=== PATIENT | female | born 1980 | race African-American/Black ===

== ENCOUNTER 2018-11-18 13:00 | Emergency (ER) | payer OTHER, SELFPAY ==
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
== END 2018-11-18 15:03 | disposition home or self-care (01) ==
LOC: NAV ERS 13:00
DX: S33.5XXA Sprain of ligaments of lumbar spine, initial encounter (principal); S05.11XA Contusion of eyeball and orbital tissues, right eye, initial encounter; V89.2XXA Person injured in unspecified motor-vehicle accident, traffic, initial encounter
CPT/HCPCS: 72100

== ENCOUNTER 2019-01-25 02:29 | Emergency (ER) | payer OTHER, SELFPAY ==
[2019-01-25] MEDS ORDERED: Benzonatate 100 MG CAP ONE (03:12)
[2019-01-25] MEDS ORDERED: predniSONE 20 MG TAB ONE (03:12)
== END 2019-01-25 03:20 | disposition home or self-care (01) ==
LOC: NAV ERS 02:29
DX: J06.9 Acute upper respiratory infection, unspecified (principal); J20.9 Acute bronchitis, unspecified
CPT/HCPCS: 87804; 99283

== ENCOUNTER 2020-11-17 19:06 | Emergency (ER) | payer SELFPAY ==
[2020-11-17 19:28] LABS: Bilirubin Negative (Negative); Blood, Urine Trace (Negative); Clarity Clear (Clear); Glucose, Urine (Dipstick) Negative (Negative); Ketone, Urine Negative (Negative); Leukocyte Negative (Negative); Nitrite Negative (Negative); Protein, Urine (Dipstick) Negative (Neg-Trace); Specific Gravity, Urine Greater/Equal 1.030 (1.005-1.030); pH, Urine 6.5 (5.0-9.0)
[2020-11-17 19:29] LABS: Bacteria/HPF None Seen HPF (None Seen); Calcium Oxalate Crystals 1+ HPF (None Seen); Squamous Epithelial 0-3 HPF (0-3); WBC/HPF None Seen HPF (0-3)
== END 2020-11-17 19:50 | disposition home or self-care (01) ==
LOC: NAV ERS 19:06
DX: R30.0 Dysuria (principal)
CPT/HCPCS: 81003; 81015; 99283

== ENCOUNTER 2021-01-02 11:13 | Emergency (ER) | payer SELFPAY | END 2021-01-02 12:18 | disposition home or self-care (01) | LOC: NAV ERS 11:13 | DX: N92.6 Irregular menstruation, unspecified (principal) | CPT/HCPCS: 99283 ==

== ENCOUNTER 2021-01-23 11:05 | Emergency (ER) | payer OTHER, SELFPAY ==
[2021-01-23 12:29] LABS: #Basophils 0.1 thou/uL (0.0-0.2); #Eosinphils 0.2 thou/uL (0.0-0.7); #Lymphocytes 1.3 thou/uL (1.20-3.40); #Monocytes 0.4 thou/uL (0.11-0.59); #Neutrophils 2.2 thou/uL (1.40-6.50); %Basophils 1.9 % (0.0-1.0); %Eosinophils 4.6 % (0.0-10.0); %Lymphocytes 31.8 % (21.0-51.0); %Neutrophils 51.7 % (42.0-75.0); Hemoglobin 8.6 g/dL (12.0-16.0); Mean Corpuscular HGB CONC 29.4 g/dL (32.0-36.0); Mean Corpuscular Hemoglobin 19.8 pg (27.0-31.0); Mean Corpuscular Volume 67.2 fL (78.0-98.0); Mean Platelet Volume 6.2 fL (7.4-10.4); Platelet Count 607 thou/uL (130-400); RBC Distribution Width 22.6 % (11.5-14.5); Red Blood Cell (RBC) Count 4.37 mill/uL (4.20-5.40); White Blood Cell (WBC) Count 4.2 thou/uL (4.8-10.8)
[2021-01-23 12:38] LABS: BHCG - Serum Negative (NEGATIVE); Pregs Control Bar Appear? YES (CONTROL BAR)
[2021-01-23 14:38] LABS: Anisocytosis SLIGHT = 6-15 cells (100X) (0-5/hpf); MDiff Complete? YES; Microcytosis MODERATE=15-30 cells (100X) (0-5/hpf); Ovalocytes SLIGHT = 2-5 cells (100X) (0-1/hpf); Platelet Morphology Comment Appears Increased; Poikilocytosis SLIGHT = 6-15 cells (100X) (0-5/hpf); Spherocytes MODERATE= 6-15 cells (100X) (None Seen)
== END 2021-01-23 12:38 | disposition left against medical advice (07) ==
LOC: NAV ERS 11:05
DX: N93.9 Abnormal uterine and vaginal bleeding, unspecified (principal)
CPT/HCPCS: 36415; 84703; 85025; 99284

== ENCOUNTER 2021-08-14 11:47 | Emergency (ER) | payer OTHER ==
[2021-08-14] MEDS ORDERED: Acetaminophen 325 MG TAB ONE (12:20)
[2021-08-14] MEDS ORDERED: Ibuprofen 200 MG TAB ONE (12:20)
[2021-08-14 13:32] LABS: Bilirubin Negative (Negative); Blood, Urine Large (Negative); Glucose, Urine (Dipstick) Negative (Negative); Ketone, Urine Negative (Negative); Leukocyte Large (Negative); Nitrite Negative (Negative); Protein, Urine (Dipstick) 30 mg/dL (Neg-Trace); pH, Urine 6.5 (5.0-9.0)
[2021-08-14 13:39] LABS: Clarity SL HAZY (Clear)
[2021-08-14 13:40] LABS: Bacteria/HPF 1+ HPF (None Seen); RBC/HPF 21-50 HPF (0-3); Squamous Epithelial 0-3 HPF (0-3)
[2021-08-14 14:17] LABS: Pregnancy Test - Urine (BHCG) Negative (Negative); Pregu Control Background? CLEAR/WHITE (CLR/WHITE); Pregu Control Bar Appear? YES (CONTROL BAR)
[2021-08-14] MEDS ORDERED: Cephalexin 250 MG CAP ONE (14:43)
[2021-08-15 14:59] LABS: SARS-CoV-2 PCR by NAA Not Detected (NotDetected)
== END 2021-08-14 14:50 | disposition home or self-care (01) ==
LOC: NAV ERS 11:47
DX: N39.0 Urinary tract infection, site not specified (principal); Z20.822 Contact with and (suspected) exposure to COVID-19
CPT/HCPCS: 81003; 81015; 81025; 87077; 87086; 87804; 87807; 99283; U0003; U0005

== ENCOUNTER 2022-05-21 02:59 | Emergency (ER) | payer OTHER, SELFPAY | END 2022-05-21 04:05 | disposition home or self-care (01) | LOC: NAV ERS 02:59 | DX: F43.20 Adjustment disorder, unspecified (principal); F32.A Depression, unspecified | CPT/HCPCS: 99283 ==

== ENCOUNTER 2023-12-25 18:28 | Emergency (ER) | payer OTHER ==
[2023-12-25 20:30] LABS: SARS-CoV-2 NAA Rapid Test Not Detected (NotDetected)
== END 2023-12-25 20:14 | disposition home or self-care (01) ==
LOC: NAV ERS 18:28
DX: J10.1 Influenza due to other identified influenza virus with other respiratory manifestations (principal)
CPT/HCPCS: 87804; 99283; U0002

== ENCOUNTER 2024-05-28 11:18 | Emergency (ER) | payer OTHER ==
[2024-05-28 12:37] LABS: SARS-CoV-2 E Target Positive; SARS-CoV-2 N2 Target Positive; SARS-CoV-2 NAA Rapid Test DETECTED (NotDetected); SARS-CoV-2 RdRP gene Positive
== END 2024-05-28 12:50 | disposition home or self-care (01) ==
LOC: NAV ERS 11:18
DX: U07.1 COVID-19 (principal)
CPT/HCPCS: 87804; 99283; U0002